=== PATIENT | male | born 1995 | race Caucasian/White ===

== ENCOUNTER 2024-12-07 22:08 | Emergency (ER) | payer OTHER ==
[~2024-12-07] VITALS: Ht 177.8 cm; Wt 89.3 kg
[2024-12-07 22:50] LABS: BASOPHILS 0.3 % (0.2-1.2); EOSINOPHILS 1.0 % (0.8-7.0); LYMPHOCYTES 18.0 % (21.8-53.1); MCH 26.7 PG (25.7-32.2); MCHC 32.3 g/dL (32.3-36.5); MCV 82.7 fL (79.0-92.2); MONOCYTES 11.9 % (5.3-12.2); NEUTROPHILS 68.5 % (34.0-67.9); RBC 5.54 M/uL (4.63-6.08)
[2024-12-07 22:51] LABS: BLOOD/HGB, URINE TRACE-I (Negative); KETONE, URINE TRACE (Negative); LEUK ESTERASE, URINE NEGATIVE (negative); NITRITE, URINE NEGATIVE (negative)
[2024-12-07 23:02] LABS: ALT (SGPT) 26.0 U/L (14-59); AST (SGOT) 10.0 U/L (15-37); GLOMERULAR FILTRATION RATE,EST 108.0 mL/min (>60); PROTEIN, TOTAL 8.1 g/dL (6.4-8.2); UREA NITROGEN 13.0 mg/dL (7-18)
[2024-12-07 23:11] LABS: BACTERIA, URINE 1+ /hpf (negative); CASTS, URINE NONE SEEN \\lpf; CRYSTALS, URINE NONE SEEN (0-1+); EPITHELIAL CELLS, URINE NONE SEEN /lpf (0-1+)
[2024-12-07 23:12] LABS: REFLEX CULTURE, URINE No (No)
[2024-12-08] MEDS ORDERED: KETOROLAC TROMETHAMINE 30 MG/ML VIAL IV ONE (01:30)
[2024-12-08] MEDS ORDERED: OMEPRAZOLE20 MG PO (02:03)
[2024-12-08 02:13] VITALS: BP 121/85
== END 2024-12-08 02:14 | disposition home or self-care (01) ==
LOC: ED 22:08
PROVIDERS: Internal Medicine
DX: R10.11 Right upper quadrant pain (principal)
CPT/HCPCS: 36415; 74176; 80053; 81001; 83690; 85025; 96374; 99284-25; J1885